=== PATIENT | male | born 1955 | race Caucasian/White ===

== ENCOUNTER 2021-02-03 11:00 | Outpatient (REF) | payer BC, SELFPAY ==
[2021-02-03 11:07] LABS: MANUAL DIFF FLAG NO
[2021-02-03 11:25] LABS: Basophils Percent Auto 0.7 % (0-2); Eosinophils Absolute Auto 0.2 X10*3/uL (0.0-0.4); Eosinophils Percent Auto 3.7 % (0-4); Hematocrit 42.3 % (42-52); Hemoglobin 14.1 g/dl (14.0-18.0); Imm Gran Abs Auto 0.01 X10*3/uL (0.00-0.03); Imm Gran Pct Auto 0.2 % (0.0-0.4); Lymphocytes Percent Auto 23.9 % (20-40); Mean Corpuscular HGB Conc 33.3 g/dl (31.0-36.0); Mean Corpuscular Hemoglobin 32.1 pg (27.0-33.0); Mean Corpuscular Volume 96.4 fL (80-98); Mean Platelet Volume 10.6 fL (9.4-12.4); Monocytes Absolute Auto 0.5 X10*3/uL (0.1-1.2); Monocytes Percent Auto 11.5 % (2-11); Neutrophils Absolute Auto 2.4 X10*3/uL (2.0-8.3); Platelet Count 156 X10*3/uL (160-400); Red Blood Count 4.39 X10*6/uL (4.60-5.80); Red Cell Distribution Width 13.1 % (11.0-16.0)
[2021-02-03 12:08] LABS: Appearance Urine CLEAR; Color Urine YELLOW; Glucose Urine UA NEG (NEG); Leukocyte Esterase Urine NEG (NEG); Nitrite Urine NEG (NEG); Specific Gravity - Urine 1.025 (1.005-1.025); Urine Blood NEG (NEG); Urine Ketones NEG (NEG); Urine Protein NEG (NEG-TRACE)
[2021-02-03 12:42] LABS: Alanine Aminotransferase 13 U/L (0-40); Alkaline Phosphatase 70 U/L (39-117); Anion Gap 11 (12-20); Aspartate Amino Transferase 17 U/L (5-37); Bilirubin Total 0.7 mg/dL (0.0-1.0); Blood Urea Nitrogen 10 mg/dL (9-16); Calcium 8.8 mg/dL (8.4-10.2); Carbon Dioxide 28 mmol/L (22-29); Chloride 107 mmol/L (96-108); Cholesterol 174 mg/dL; Estimated Glomerular Filt Rate > 60; Glucose Fasting 110 mg/dL (60-99); HDL Cholesterol 87 mg/dL; LDL Cholesterol Calculated 78 mg/dl; Potassium 3.9 mmol/L (3.3-5.1); Sodium 142 mmol/L (135-145); Total Protein 6.2 g/dL (6.5-8.0); Triglycerides 49 mg/dL
[2021-02-03 12:44] LABS: Creatinine Urine 112.42 mg/dL; Microalbumin Urine < 5.0 mg/L
[2021-02-03 12:59] LABS: Estimated Average Glucose 97 mg/dL
== END 2021-02-03 11:01 | disposition home or self-care (01) ==
LOC: HO.LNP 11:00
PROVIDERS: Visit Provider Internal Medicine
DX: Z00.00 Encounter for general adult medical examination without abnormal findings (principal); D70.9 Neutropenia, unspecified; R73.03 Prediabetes; I34.1 Nonrheumatic mitral (valve) prolapse
CPT/HCPCS: 80053; 80061; 81003; 82043; 83036; 85025

== ENCOUNTER → 2021-04-04 08:00 | Outpatient (REF) | payer BC, SELFPAY ==
--- NOTE | 2021-04-04 08:30 | CA_ITS ---
Transthoracic Echocardiogram Patient (Last, First, Middle): Raúl Peraza P Gender: Male Date of : 1955 Age: 65 Procedure Date: 04/04/2021 Procedure Type: Transthoracic Echocardiogram Location: OP Height: 187.96 cm Weight: 95.26 kg BSA: 2.22 m2 Heart Rate: bpm BP: 110 / 70 mmHg [employer]ies[employer] Plant Manager: LAURI Referring MD: Mitul Galicia MD Symptoms: I34.1 MITRAL VALVE PROLAPSE Conclusions: - Normal right ventricular cavity size and systolic function. - Normal left ventricular size and systolic function. - The left atrium is severely dilated. - There is moderate anterior and posterior mitral leaflet thickening. There is a flail posterior mitral leaflet. There is moderate to severe mitral valve regurgitation. The mitral regurgitation jet is directed anteriorly. There is no mitral valve stenosis. There is P2 segment prolapse noted. - There is mild dilatation of the ascending aorta measuring 3.60 cm. Findings Left Ventricle Normal left ventricular size and systolic function. There is normal left ventricular wall thickness. The visually estimated ejection fraction is between 55-60%. There is no evidence of regional wall motion abnormalities. Diastolic function is normal for age. Right Ventricle Normal right ventricular cavity size and systolic function. Atria The left atrium is severely dilated. The right atrium is normal in size. Aortic Valve Normal aortic valve structure and function. There is no aortic valve stenosis. There is no aortic valve regurgitation. Mitral Valve There is moderate anterior and posterior mitral leaflet thickening. There is a flail posterior mitral leaflet. There is moderate to severe mitral valve regurgitation. The mitral regurgitation jet is directed anteriorly. There is no mitral valve stenosis. There is P2 segment prolapse noted. Pulmonic Valve Normal pulmonic valve structure and function. There is trace pulmonic valve regurgitation. Tricuspid Valve Normal tricuspid valve structure. There is no tricuspid valve regurgitation. Normal right atrial pressure. There is no evidence of pulmonary hypertension. Great Vessels There is mild dilatation of the ascending aorta measuring 3.60 cm. The visualized portions of the pulmonary artery and branches are normal. Venous The inferior vena cava is normal in size and collapses greater than 50% with inspiration. Pericardium/Pleural There is no evidence of pericardial effusion. Prior Study Comparison Changes noted compared to prior study dated: 07/20/2015. Posterior mitral valve leaflet is flail with moderate to severe MR. Recommendations, Care & Conclusions Recommend a JOSE ELIAS. Measurements 2D Linear Measurements IVSd: 1.03 0.6-0.9/0.6-1.0 cm LVIDd: 5.08 3.9-5.3/4.2-5.9 cm LVIDd Index: 2.29 2.4-3.2/2.2-3.1 cm/m2 LVIDs: 2.74 2.0-3.6 cm LVPWd: 1.08 0.7-1.1 cm Ao Root: 4.00 2.1-3.5 cm LA Diam: 5.10 2.7-3.8/3.0-4.0 cm LAIDs Index: 2.30 1.5-2.3 cm/m2 LV Mass: 250.22 67-162/88-224 g LV Mass Index: 112.71 43-95/49-115 g/m2 LVOT Diam: 2.30 3.0+(-)1.3 cm 2D Systolic Function EF 4C: 52.90 >55% EF 2C: 51.70 >55% EF BiP: 53.90 >55% Mitral Valve MV Pk E: 0.82 MV PK A: 0.40 MV Decel Time: 363.00 E/A: 2.10 E'Lateral: 13.10 E'Medial: 10.20 E/E' Med: 8.00 E/E' Lat: 6.20 PHT: 106.00 MVA PHT: 2.08 Decel Brooke: 2.25 Aortic Valve AoV Pk Fritz: 1.35 AoV Mn Fritz: 0.88 AoV VTI: 0.29 AoV Pk Grad: 7.00 Aov Mn Grad: 4.00 DERECK Cont.VTI: 2.98 LVOT LVOT Pk Fritz: 1.02 LVOT Mn Fritz: 0.63 LVOT VTI: 0.21 LVOT Pk Grad: 4.00 LVOT Mn Grad: 2.00 LVOT Diam: 2.30 LVOT Area: 4.15 Diastolic Function MV Pk E: 0.82 MV Pk A: 0.40 E/A: 2.10 E'Medial: 10.20 E/E' Med: 8.00 E' Laterial: 13.10 E/E' Lat: 6.20 Right Ventricle TAPSE (mm): 2.63 Tricuspid Valve TR Pk Fritz: 2.38 TR Pk Grad: 23.00 RA Press: 3.00 RVSP: 26.00 Great Vessels Aorta Ao Root-2D: 4.00 2.0-3.7 cm Ao Asc: 3.60 2.1-3.4 cm Ao Arch: 2.90 Updated in Other Vendor System with Status of Final John Crook MD electronically signed on 04/07/2021 7:25:04 PM with status of Final
== END ==
LOC: HO.CARD 08:00
PROVIDERS: PCP Internal Medicine; Visit Provider Internal Medicine
DX: I34.1 Nonrheumatic mitral (valve) prolapse (principal)
CPT/HCPCS: 93306

== ENCOUNTER → 2021-05-20 15:11 | Outpatient (BNVA) | payer BC, SELFPAY | PROVIDERS: PCP Internal Medicine; Referring Provider Internal Medicine; Visit Provider Internal Medicine | DX: I34.1 Nonrheumatic mitral (valve) prolapse (principal); I34.0 Nonrheumatic mitral (valve) insufficiency; I45.10 Unspecified right bundle-branch block | CPT/HCPCS: 93005 ==

== ENCOUNTER 2021-05-30 12:22 | Day surgery (SDC) | payer BC, SELFPAY ==
[2021-05-26 10:46] VITALS: BMI 25.8
[2021-05-30 12:43] VITALS: BP 124/72; PULSE 65; RESP 16; TEMP 37.1; O2SAT 95
--- NOTE | 2021-05-30 13:24 | MHC.SHP ---
Pre-Procedural Eval Section A Date of Service: 05/30/21 The patient is an INPATIENT: No Section B Chief Complaint: Nonrheumatic Mitral Valve insufficiency Allergies: Allergies Allergy/AdvReac Type Severity Reaction Status Date / Time No Known Allergies Allergy Mild N/A Verified 05/20/21 15:22 Plan I have reviewed the history and physical and performed a pertinent physical examination on my patient. No changes have occurred unless specified.
--- NOTE | 2021-05-30 13:25 | P.CONAN_ITS ---
[facility] Active Problems Active Problems: All Active Problems (Updated 05/23/21 @ 14:35 by Susan turcios RN) MVP (mitral valve prolapse) (Acute) Non-rheumatic mitral regurgitation (Acute) RBBB (Acute) Past Medical History Medical History (Updated 05/23/21 @ 14:35 by Susan Zuleta RN) Mitral valve prolapse Right bundle branch block Family History Family History (Updated 05/20/21 @ 15:22 by JAM Butler) Father Diabetes History of heart bypass surgery Mother Heart failure Family history of problems with anesthesia: No Surgical History Surgical History (Updated 05/23/21 @ 14:34 by Susan Zuleta RN) H/O colonoscopy Hx of varicose vein ligation and stripping History of Problems with Anesthesia: No Social History Social History (Updated 05/20/21 @ 15:21 by JAM Butler) Patient Tobacco Use Status: Never used Tobacco Advance Directives: No (unknown) Advance Directives Information Provided: Yes Advance Directives on File: No Meds Allergies Allergy/AdvReac Type Severity Reaction Status Date / Time No Known Allergies Allergy Mild N/A Verified 05/20/21 15:22 Home Medications Medication Instructions Recorded Confirmed Last Taken Type No Known Home Meds 05/20/21 05/23/21 Unknown History Exam Exam Date and Time: May 30, 2021 1325 Height,Weight and Vital Signs: Height 6 ft 2 in Weight 91.172 kg Last Vital Signs Temp 98.8 F 05/30/21 12:43 Pulse 65 05/30/21 12:43 Resp 16 05/30/21 12:43 BP 124/72 05/30/21 12:43 Pulse Ox 95 05/30/21 12:43 Airway Mallampati Class: II (Missing 2 teeth) TM Dist: >3cm Neck ROM: Full Heart: rrr Lungs: cta bl Assessment and Plan Assessment Anesthesia Assessment: Anesthesia Plan Discussed and Chart Reviewed Final Anesthetic Review Family History of Problems with Anesthesia: No History of Problems with Anesthesia: No NPO: Yes ASA Class: II Final Preanesthetic Review: No Changes in Pt Med Stat, Meds/Allgs Chart Reviewed and Consent Obtained/Reviewed Patient Risk: Intermediate Procedure Risk: Intermediate Anesthetic Plan Anesthetic Plan: MAC: Disposition: Standard PACU
--- NOTE | 2021-05-30 14:10 | CA_ITS ---
Transesophageal Echocardiogram Patient (Last, First, Middle): Raúl Peraza P Gender: Male Date of : 1955 Age: 65 Procedure Date: 05/30/2021 Procedure Type: Transesophageal Echocardiogram Location: OP Height: 182.88 cm Weight: kg Program Manager Slp: ELIZABETH Referring MD: Jaycob Malone MD Symptoms: I34.0 - Nonrheumatic mitral (valve) insufficiency Conclusion: ??? The left ventricular systolic function is normal. The visually estimated ejection fraction is between 55-60%. ??? The mitral valve appears myxomatous. There is moderate to severe mitral valve regurgitation. The mitral regurgitation jet is directed anteriorly. Jet is very eccentric. Flail P2 scallop. Findings Procedure Information Consent was obtained prior to the procedure. The adult 3D probe was passed with no difficulty. Left Ventricle Normal left ventricular cavity size. The left ventricular systolic function is normal. The visually estimated ejection fraction is between 55-60%. Right Ventricle Normal right ventricular cavity size and systolic function. Atria There is no evidence of a thrombus in the left atrial appendage. There is no evidence of interatrial shunt by color Doppler. Aortic Valve There is a normal trileaflet aortic valve. There is no aortic valve stenosis. There is trace (trivial) aortic valve regurgitation. Mitral Valve The mitral valve appears myxomatous. There is moderate to severe mitral valve regurgitation. The mitral regurgitation jet is directed anteriorly. There is no mitral valve stenosis. Jet is very eccentric. Flail P2 scallop. Effective regurgitant orifice area 0.6sqcm, likely over-estimate. Regurgitant volume 74ml, also likely over-estimate. No clear abnormality in pulmonic veins. Pulmonic Valve The pulmonic valve was not well visualized. Tricuspid Valve Normal tricuspid valve structure. There is trace tricuspid valve regurgitation. Great Vessels The aortic annulus, sinuses of valsalva, and asc aorta are normal in size. No significant atherosclerotic plaque. Pericardium/Pleural There is no evidence of pericardial effusion. Prior Study Comparison No significant change compared to prior study dated: 04/04/2021. Measurements Mitral Valve MR Vol - PW Dopp: 75.60 MR VTI: 1.26 MR ERO: 60.00 MR Alias Fritz: 0.28 MR RAD: 1.20 Updated by Jaycob Malone on 03:30 PM with Status of Final Jaycob Malone MD electronically signed on 05/30/2021 3:31:26 PM with status of Final
[2021-05-30 15:00] VITALS: BP 107/61; PULSE 71; RESP 14; TEMP 36.8; O2SAT 97
[2021-05-30 15:15] VITALS: BP 108/62; PULSE 71; RESP 16; TEMP 36.8; O2SAT 96
[2021-05-30 15:31] VITALS: BP 109/78; PULSE 60; RESP 16; TEMP 36.8; O2SAT 96
== END 2021-06-02 16:05 | disposition home or self-care (01) ==
PROVIDERS: PCP Internal Medicine; Visit Provider Internal Medicine
PROC: (CPT 93312; principal; 2021-05-30 14:10)
DX: I34.0 Nonrheumatic mitral (valve) insufficiency (principal); I34.1 Nonrheumatic mitral (valve) prolapse; I45.10 Unspecified right bundle-branch block
CPT/HCPCS: 93312

== ENCOUNTER 2021-07-02 12:09 | Outpatient (REF) | payer BC, SELFPAY ==
[2021-07-02 12:58] LABS: Hematocrit 41.9 % (42.0-52.0); Mean Corpuscular HGB Conc 33.4 g/dl (31.0-36.0); Mean Corpuscular Hemoglobin 31.5 pg (27.0-33.0); Mean Corpuscular Volume 94.4 fL (80.0-98.0); Mean Platelet Volume 9.7 fL (9.4-12.4); Platelet Count 147 X10*3/uL (160-400); Red Blood Count 4.44 X10*6/uL (4.60-5.80); Red Cell Distribution Width 12.7 % (11.0-16.0)
[2021-07-02 13:12] LABS: Prothrombin Time 11.4 SEC (9.9-13.0)
[2021-07-02 13:17] LABS: Anion Gap 12 (12-20); Blood Urea Nitrogen 17 mg/dL (9-16); Calcium 9.5 mg/dL (8.4-10.2); Carbon Dioxide 28 mmol/L (22-29); Chloride 104 mmol/L (96-108); Estimated Glomerular Filt Rate > 60; Glucose Random 113 mg/dL (60-115); Potassium 4.4 mmol/L (3.3-5.1); Sodium 140 mmol/L (135-145)
== END 2021-07-02 12:10 | disposition home or self-care (01) ==
LOC: HO.LAB 12:09
PROVIDERS: PCP Internal Medicine; Visit Provider Internal Medicine
DX: I34.0 Nonrheumatic mitral (valve) insufficiency (principal)
CPT/HCPCS: 36415; 80048; 85027; 85610

== ENCOUNTER → 2021-07-31 12:57 | Outpatient (BNVA) | payer BC, SELFPAY | PROVIDERS: PCP Internal Medicine; Referring Provider Internal Medicine; Visit Provider Nurse Practitioner Family | DX: Z13.89 Encounter for screening for other disorder (principal) ==

== ENCOUNTER 2021-09-10 10:44 | Outpatient (REF) | payer BC, SELFPAY ==
--- NOTE | ~2021-09-10 | US_ITS ---
EXAMINATION: US EXTRACRANIAL CAROTID DUPLEX, BILATERAL CLINICAL INFORMATION: Carotid bruit COMPARISON: None TECHNIQUE: Real-time ultrasound and Doppler techniques (integrating B-mode 2-D vascular images, Doppler spectral analysis and color-flow Doppler imaging) were utilized to interrogate the extracranial carotid arteries, the vertebral arteries and proximal subclavian arteries bilaterally. The degree of stenosis is determined by criteria similar to NASCET. FINDINGS: Right Side: 1. There is no atherosclerotic plaque seen in the bifurcation/proximal ICA region. 2. The common carotid artery PSV proximally is 101 cm/s and distally 105 cm/s. 3. The proximal internal carotid artery velocities are 80 cm/s systolic and 17 cm/s diastolic. 4. The proximal external carotid artery PSV is 95 cm/s. 5. The vertebral artery shows antegrade flow. 6. The subclavian artery waveforms are normal. Left Side: 1. There is no atherosclerotic plaque seen in the bifurcation/proximal ICA region. 2. The common carotid artery PSV proximally is 165 cm/s and distally 82 cm/s. 3. The proximal internal carotid artery velocities are 75 cm/s systolic and 20 cm/s diastolic. 4. The proximal external carotid artery PSV is 92 cm/s. 5. The vertebral artery shows antegrade flow. 6. The subclavian artery waveforms are normal. US/US carotid duplex BI IMPRESSION: 1. RIGHT: Normal right internal carotid artery without atherosclerotic plaque or hemodynamically significant stenosis. 2. LEFT: Normal left internal carotid artery without atherosclerotic plaque or hemodynamically significant stenosis.
== END 2021-09-10 10:45 | disposition home or self-care (01) ==
LOC: HO.US 10:44
PROVIDERS: Visit Provider Thoracic Surgery (Cardiothoracic Vascular Surgery)
DX: R01.1 Cardiac murmur, unspecified (principal)
CPT/HCPCS: 93880

== ENCOUNTER 2021-11-11 16:40 | Outpatient (REF) | payer BC, SELFPAY ==
[2021-10-29 13:18] VITALS: BP 110/72; BP 116/70; BMI 27.7
[2021-11-11 16:47] LABS: MANUAL DIFF FLAG NO
[2021-11-11 16:58] LABS: Basophils Percent Auto 0.5 % (0-2); Eosinophils Absolute Auto 0.2 X10*3/uL (0.0-0.4); Eosinophils Percent Auto 5.8 % (0-4); Hemoglobin 13.2 g/dl (14.0-18.0); Imm Gran Abs Auto 0.01 X10*3/uL (0.00-0.03); Imm Gran Pct Auto 0.3 % (0.0-0.4); Lymphocytes Absolute Auto 0.9 X10*3/uL (1.2-4.9); Lymphocytes Percent Auto 23.7 % (20-40); Mean Corpuscular Hemoglobin 30.2 pg (27.0-33.0); Mean Corpuscular Volume 91.5 fL (80.0-98.0); Mean Platelet Volume 10.2 fL (9.4-12.4); Monocytes Absolute Auto 0.4 X10*3/uL (0.1-1.2); Monocytes Percent Auto 10.1 % (2-11); Neutrophils Absolute Auto 2.4 x10*3/uL (2.0-8.3); Neutrophils Percent Auto 59.6 % (45-73); Platelet Count 194 X10*3/uL (160-400); Red Blood Count 4.37 X10*6/uL (4.60-5.80); Red Cell Distribution Width 13.2 % (11.0-16.0)
== END 2021-11-11 16:41 | disposition home or self-care (01) ==
LOC: HO.LNP 16:40
PROVIDERS: Visit Provider Internal Medicine
DX: D64.9 Anemia, unspecified (principal)
CPT/HCPCS: 85025

== ENCOUNTER → 2021-12-31 10:31 | Outpatient (REF) | payer BC, SELFPAY ==
[2021-10-29 13:18] VITALS: BP 110/72; BP 116/70
[2021-11-25 07:52] VITALS: BP 102/68; BMI 27.7
--- NOTE | 2021-12-31 10:36 | CA_ITS ---
Transthoracic Echocardiogram Patient (Last, First, Middle): Raúl Peraza P Gender: Male Date of : 1955 Age: 66 Procedure Date: 12/31/2021 Procedure Type: Transthoracic Echocardiogram Location: OP Height: 187.96 cm Weight: 96.16 kg BSA: 2.23 m2 Heart Rate: 67 bpm BP: 106 / 62 mmHg Rural Mail Contractor: TO Referring MD: Jaycob Malone MD Assistant Signal Maintainer: Derrick Holbrook MD Symptoms: Z98.890 - Other specified postprocedural states Study Quality: Adequate ECG Rhythm: Sinus Conclusions: - 1. Low normal LV systolic function with mild LVH with impaired relaxation filling pattern 2. Mildly reduced RV systolic function 3. Posterior mitral valve leaflet repair with no mitral regurgitation next 4. Normal RV systolic pressure 5. No pericardial effusion Findings Left Ventricle Normal left ventricular cavity size. There is mildly increased left ventricular wall thickness. The left ventricular systolic function is low normal. The visually estimated ejection fraction is between 50-55%. There is paradoxical septal motion consistent with post-operative status. Spectral Doppler is indicative of an impaired relaxation filling pattern. E/E prime ratio is between 8 and 15 consistent with indeterminate filling pressures. Right Ventricle Normal right ventricular cavity size. There is mildly decreased right ventricular systolic function. Atria The left atrium is likely dilated. There is no evidence of interatrial shunt. The right atrium is likely dilated. Aortic Valve Normal aortic valve structure and function. There is no aortic valve stenosis. There is no aortic valve regurgitation. Mitral Valve There is mild anterior and moderate posterior mitral leaflet thickening. The posterior mitral leaflet has restricted mobility. There is no mitral valve regurgitation. There is no mitral valve stenosis. Thickened and restricted posterior mitral leaflet most consistent with posterior mitral valve leaflet repair Pulmonic Valve The pulmonic valve is likely normal. There is trace pulmonic valve regurgitation. Tricuspid Valve Normal tricuspid valve structure. There is mild tricuspid valve regurgitation. The right ventricular systolic pressure is normal. The right ventricular systolic pressure is 17 mmHg. Normal right atrial pressure. There is no evidence of pulmonary hypertension. Great Vessels All visible segments of the aorta are normal in size. The pulmonary artery was not well visualized. Venous The inferior vena cava is normal in size and collapses greater than 50% with inspiration. Pericardium/Pleural There is no evidence of pericardial effusion. Prior Study Comparison Changes noted compared to prior study dated: 05/30/2021. LV systolic function appears marginally depressed. Posterior mitral leaflet appears to be thickened, most likely post mitral valve repair with no evidence of mitral regurgitation Measurements 2D Linear Measurements IVSd: 1.31 0.6-0.9/0.6-1.0 cm LVIDd: 4.38 3.9-5.3/4.2-5.9 cm LVIDd Index: 1.96 2.4-3.2/2.2-3.1 cm/m2 LVIDs: 2.85 2.0-3.6 cm LVPWd: 1.25 0.7-1.1 cm LA Diam: 4.50 2.7-3.8/3.0-4.0 cm LAIDs Index: 2.02 1.5-2.3 cm/m2 LV Mass: 307.29 67-162/88-224 g LV Mass Index: 137.80 43-95/49-115 g/m2 LVOT Diam: 2.20 3.0+(-)1.3 cm 2D Systolic Function EF 4C: 50.60 >55% EF 2C: 41.70 >55% Mitral Valve MV VTI: 0.32 MV Pk Fritz: 1.01 MV Mn Fritz: 0.68 MV Pk Grad: 4.00 MV Mn Grad: 2.00 MV Pk E: 0.65 MV PK A: 0.78 MV Decel Time: 314.00 E/A: 0.80 E'Lateral: 9.68 E'Medial: 7.72 E/E' Med: 8.40 E/E' Lat: 6.70 PHT: 92.00 MVA PHT: 2.39 MVA Continuity: 2.23 Decel Chester: 2.06 Aortic Valve AoV Pk Fritz: 1.16 AoV Mn Fritz: 0.87 AoV VTI: 0.25 AoV Pk Grad: 5.00 Aov Mn Grad: 3.00 DERECK Cont.VTI: 2.82 LVOT LVOT Pk Fritz: 0.80 LVOT Mn Fritz: 0.57 LVOT VTI: 0.19 LVOT Pk Grad: 3.00 LVOT Mn Grad: 1.00 LVOT Diam: 2.20 LVOT Area: 3.80 Diastolic Function MV Pk E: 0.65 MV Pk A: 0.78 E/A: 0.80 E'Medial: 7.72 E/E' Med: 8.40 E' Laterial: 9.68 E/E' Lat: 6.70 Right Ventricle TAPSE (mm): 14.80 TVS' Fritz: 5.66 Tricuspid Valve TR Pk Fritz: 1.87 TR Pk Grad: 14.00 RA Press: 3.00 RVSP: 17.00 Great Vessels Aorta Sinus of Valsalva: 4.35 2.0-3.[address] [place]: 3.57 1.7-3.4 cm Ao Asc: 3.70 2.1-3.4 cm Updated in Other Vendor System with Status of Final Derrick Holbrook MD electronically signed on 12/31/2021 4:10:33 PM with status of Final
--- NOTE | 2021-12-31 10:36 | HM_ITS ---
* Total monitoring time 3 days and 8 hours. * Underlying rhythm is sinus. Average rate 78/Min. Range 60 to 115/Min. * No atrial fibrillation or flutter or AV blocks or pauses. * Rare supraventricular ectopy with minimal burden. Few brief runs, longest 14 beats. * Rare ventricular ectopy with minimal burden. * No patient events. MTDD
== END ==
LOC: HO.CARD 10:31
PROVIDERS: Visit Provider Internal Medicine
DX: Z98.890 Other specified postprocedural states (principal)
CPT/HCPCS: 93242; 93306

== ENCOUNTER 2022-02-10 11:21 | Outpatient (REF) | payer BC, SELFPAY ==
[2022-02-10 11:21] VITALS: BP 116/70; BP 134/80; BMI 27.5
[2022-02-10 11:27] LABS: MANUAL DIFF FLAG NO
[2022-02-10 12:10] LABS: Basophils Percent Auto 0.7 % (0-2); Eosinophils Absolute Auto 0.2 X10*3/uL (0.0-0.4); Eosinophils Percent Auto 4.5 % (0-4); Hematocrit 43.1 % (42.0-52.0); Hemoglobin 14.5 g/dl (14.0-18.0); Imm Gran Abs Auto 0.01 X10*3/uL (0.00-0.03); Imm Gran Pct Auto 0.2 % (0.0-0.4); Lymphocytes Absolute Auto 1.4 X10*3/uL (1.2-4.9); Lymphocytes Percent Auto 33.5 % (20-40); Mean Corpuscular HGB Conc 33.6 g/dl (31.0-36.0); Mean Corpuscular Hemoglobin 31.4 pg (27.0-33.0); Mean Corpuscular Volume 93.3 fL (80.0-98.0); Mean Platelet Volume 10.4 fL (9.4-12.4); Monocytes Absolute Auto 0.5 X10*3/uL (0.1-1.2); Monocytes Percent Auto 12.2 % (2-11); Neutrophils Percent Auto 48.9 % (45-73); Platelet Count 169 X10*3/uL (160-400); Red Blood Count 4.62 X10*6/uL (4.60-5.80)
[2022-02-10 12:15] LABS: Appearance Urine Clear; Color Urine Yellow; Glucose Urine UA Negative (Negative); Leukocyte Esterase Urine Negative (Negative); Nitrite Urine Negative (Negative); PH 5.5 (5.0-9.0); Urine Blood Negative (Negative); Urine Ketones Negative (Negative); Urine Protein Negative (Neg-Trace)
[2022-02-10 12:22] LABS: Estimated Average Glucose 105 mg/dL; Hemoglobin A1c % 5.3 %
[2022-02-10 12:33] LABS: Alanine Aminotransferase 12 U/L (0-40); Albumin Level 3.9 g/dL (3.5-5.0); Alkaline Phosphatase 80 U/L (39-117); Anion Gap 13 (12-20); Aspartate Amino Transferase 17 U/L (5-37); Bilirubin Total 0.4 mg/dL (0.0-1.0); Blood Urea Nitrogen 14 mg/dL (9-16); Calcium 8.8 mg/dL (8.4-10.2); Carbon Dioxide 26 mmol/L (22-29); Chloride 107 mmol/L (96-108); Cholesterol 167 mg/dL; Estimated Glomerular Filt Rate > 60; Glucose Fasting 104 mg/dL (60-99); HDL Cholesterol 72 mg/dL; LDL Cholesterol Calculated 84 mg/dl; Potassium 4.1 mmol/L (3.3-5.1); Sodium 142 mmol/L (135-145); Total Protein 6.3 g/dL (6.5-8.0); Triglycerides 59 mg/dL
[2022-02-10 12:41] LABS: Creatinine Urine 132.12 mg/dL; Microalbum/Creatinine Ratio Ur 3.7 ug/mg cr
[2022-02-10 12:44] LABS: PSA,Total (Free>4and<10) 0.49 ng/mL (0.00-4.00)
== END 2022-02-10 11:22 | disposition home or self-care (01) ==
LOC: HO.LNP 11:21
PROVIDERS: Visit Provider Internal Medicine
DX: Z00.00 Encounter for general adult medical examination without abnormal findings (principal); Z12.5 Encounter for screening for malignant neoplasm of prostate; D70.9 Neutropenia, unspecified; R73.03 Prediabetes
CPT/HCPCS: 80053; 80061; 81003; 82043; 83036; 84153; 85025

== ENCOUNTER → 2022-12-15 08:49 | Outpatient (REF) | payer BC, MEDICARE, SELFPAY ==
--- NOTE | 2022-12-15 08:53 | CA_ITS ---
Transthoracic Echocardiogram Patient (Last, First, Middle): Raúl Peraza P Gender: Male Date of : 1955 Age: 67 Procedure Date: 12/15/2022 Procedure Type: Transthoracic Echocardiogram Location: OP Height: 187.96 cm Weight: 98.88 kg BSA: 2.25 m2 Heart Rate: bpm BP: 110 / 70 mmHg Dulser: TO Referring MD: Jaycob Malone MD Symptoms: Z98.890 - Other specified postprocedural states Study Quality: Adequate ECG Rhythm: Sinus Conclusions: - The left ventricular systolic function is mildly decreased. The calculated ejection fraction is 50% by biplane method. - Normally functioning mitral valve s/p repair. Findings Left Ventricle Normal left ventricular cavity size. The left ventricular systolic function is mildly decreased. The calculated ejection fraction is 50% by biplane method. There is mild global hypokinesis. Diastolic function is normal for age. There is mild septal and mild basal asymmetric hypertrophy. Right Ventricle Moderately increased right ventricular cavity size. There is mildly decreased right ventricular systolic function. Atria The left atrium is likely dilated. The right atrium is mildly dilated. Aortic Valve There is a normal trileaflet aortic valve. There is no aortic valve stenosis. There is no aortic valve regurgitation. Mitral Valve There is trace mitral valve regurgitation. There is no mitral valve stenosis. Posterior leaflet appearance suggestive of mitral valve repair. Pulmonic Valve There is trace pulmonic valve regurgitation. Tricuspid Valve Normal tricuspid valve structure. There is mild tricuspid valve regurgitation. There is no evidence of pulmonary hypertension. Great Vessels The asc aorta is normal in size. Venous The inferior vena cava is normal in size and collapses greater than 50% with inspiration. Pericardium/Pleural There is no evidence of pericardial effusion. Prior Study Comparison No significant change compared to prior study dated: 12/31/2021. Measurements 2D Linear Measurements IVSd: 1.40 0.6-0.9/0.6-1.0 cm LVIDd: 4.70 3.9-5.3/4.2-5.9 cm LVIDd Index: 2.09 2.4-3.2/2.2-3.1 cm/m2 LVIDs: 3.70 2.0-3.6 cm LVPWd: 0.90 0.7-1.1 cm LA Diam: 4.50 2.7-3.8/3.0-4.0 cm LAIDs Index: 2.00 1.5-2.3 cm/m2 LV Mass: 248.74 67-162/88-224 g LV Mass Index: 110.55 43-95/49-115 g/m2 LVOT Diam: 2.30 3.0+(-)1.3 cm 2D Systolic Function EF 4C: 53.50 >55% EF 2C: 48.90 >55% EF BiP: 50.40 >55% Mitral Valve MV VTI: 0.38 MV Pk Fritz: 0.98 MV Mn Fritz: 0.63 MV Pk Grad: 4.00 MV Mn Grad: 2.00 MV Pk E: 0.65 MV PK A: 0.93 MV Decel Time: 389.00 E/A: 0.70 E'Lateral: 8.81 E'Medial: 7.51 E/E' Med: 8.70 E/E' Lat: 7.40 PHT: 114.00 MVA PHT: 1.93 MVA Continuity: 2.04 Decel Lau[place]: 1.68 Aortic Valve AoV Pk Fritz: 1.19 AoV Mn Fritz: 0.92 AoV VTI: 0.27 AoV Pk Grad: 6.00 Aov Mn Grad: 4.00 DERECK Cont.VTI: 2.87 LVOT LVOT Pk Fritz: 0.82 LVOT Mn Fritz: 0.54 LVOT VTI: 0.19 LVOT Pk Grad: 3.00 LVOT Mn Grad: 1.00 LVOT Diam: 2.30 LVOT Area: 4.15 Diastolic Function MV Pk E: 0.65 MV Pk A: 0.93 E/A: 0.70 E'Medial: 7.51 E/E' Med: 8.70 E' Laterial: 8.81 E/E' Lat: 7.40 Right Ventricle TAPSE (mm): 14.50 TVS' Fritz: 7.62 Tricuspid Valve TR Pk Fritz: 2.10 TR Pk Grad: 18.00 RA Press: 3.00 RVSP: 21.00 Great Vessels Aorta Sinus of Valsalva: 4.00 2.0-3.5 cm Ao Asc: 3.60 2.1-3.4 cm Updated in Other Vendor System with Status of Final Jaycob Malone MD electronically signed on 12/17/2022 4:48:39 PM with status of Final
== END ==
LOC: HO.CARD 08:49
PROVIDERS: PCP Internal Medicine; Visit Provider Internal Medicine
DX: Z98.890 Other specified postprocedural states (principal)
CPT/HCPCS: 93306

== ENCOUNTER → 2022-12-15 08:53 | Outpatient (BNV) | payer BC, MEDICARE, SELFPAY | PROVIDERS: PCP Internal Medicine; Visit Provider Internal Medicine | DX: I51.7 Cardiomegaly (principal); I36.1 Nonrheumatic tricuspid (valve) insufficiency | CPT/HCPCS: 93306 ==

== ENCOUNTER 2023-01-14 08:07 | Outpatient (AMB) | payer BC, MEDICARE, SELFPAY ==
[2021-10-29 13:18] VITALS: BP 110/72; BP 116/70
[2021-12-23 06:42] VITALS: BP 104/58; BMI 27.7
--- NOTE | 2023-01-14 08:11 | A.OFFVIS_ITS ---
Intake Vital Signs 01/14/23 08:12 Height 6 ft 2 in Weight 222 lb 10.67 oz BMI 28.6 BP 110/70 Blood Pressure Location Lt brachial Position Sitting Pulse 60 Intake Visit Reasons: 1 yr f/up s/p echo Intake Note: 1 year follow up w/ EKG Ambulance Driver Paramedic Required: No Accompanied by: Self / Same As Patient Allergies No Known Allergies Allergy (Mild, Verified 01/14/23 08:15) N/A Medication List - Last Reconciled 01/14/23 by Jaycob Malone MD aspirin (Adult Low Dose Aspirin) 81 mg PO DAILY metoprolol tartrate 25 mg PO BID HPI HPI Comments History of Present Illness Details Raúl returns for follow-up after recent mitral valve repair. To recall, he was seen regarding severe mitral regurgitation. He had some shor tness of breath with activity and subsequently, underwent cardiac catheterization that showed no significant coronary disease. Then seen cardiac surgeon and underwent mitral valve repair. Since last seen, no new issues. He states that he feels fine. [facility] Medical History (Updated 05/23/21 @ 14:35 by Susan Zuleta RN) Mitral valve prolapse Right bundle branch block Surgical History H/O colonoscopy History of mitral valve repair (~09/2021) Hx of varicose vein ligation and stripping S/P cardiac cath Family History Father Diabetes History of heart bypass surgery Mother Heart failure Social History Patient Tobacco Use Status: Never used Tobacco Review of Systems Const Denies weakness ENT Denies dizziness Card Denies chest pain, Denies chest pain with activity, Denies syncope, Denies rapid heart rate, Denies pedal edema, Denies edema, Denies leg edema, Denies lightheadedness, Denies palpitations, Denies dyspnea, Denies dyspnea on exertion and Denies orthopnea Resp Denies cough, Denies dyspnea and Denies dyspnea on exertion GI Denies hematochezia and Denies change in stool character Musc Denies abnormal gait, Denies muscle cramps, Denies muscle weakness, Denies numbness, Denies radiating pain into limb and Denies tingling Neuro Denies abnormal gait, Denies dizziness, Denies syncope, Denies numbness, Denies tingling and Denies weakness Endo Denies palpitations Physical Exam Vital Signs: Last Vital Signs Pulse 60 01/14/23 08:12 BP 110/70 01/14/23 08:12 BMI result Body Mass Index 28.6 Const General: comfortable and no acute distress Orientation/consciousness: patient oriented x3 HEENT Other: Unremarkable Head: Yes normal to inspection Neck Neck: Yes normal visual inspection Chest Chest palpation & inspection: normal inspection of the chest Resp Auscultation: clear to auscultation bilaterally Cardio Palpation: normal PMI Heart sounds: S1 normal heart sound present, S2 normal heart sound present, no gallops, no murmurs and no rubs GI Palpation (GI): Soft to palpation Back/Spine/Pelvis Other: unremarkable Skin General skin exam: no rashes or lesions noted Neuro General: patient oriented x3 Extrem General: Yes normal to inspection Psych Mental Status: mental status grossly normal Office Procedures EKG Details: EKG with sinus rhythm at 60/Min; right bundle-branch block pattern. [id number], Complete Assessment & Plan Assessment & Plan (1) Status post mitral valve repair: Code(s): Z98.890 - Other specified postprocedural states Plan: Preop cardiac catheterization showed normal coronary arteries. s/p mitral valve repair with annuloplasty ring and jessica chords. Postoperative echocardiogram had shown mild to moderately diminished LVEF and inferior wall hypo/akinesis. Mean gradient across the mitral valve then was 2 mm Hg. Repeat study with LVEF 50-55%. Status post mitral valve repair with no regurgitation or stenosis. Most recent echocardiogram with LVEF of 50%. Normally functioning mitral valve. Otherwise, may remain on aspirin. May stop beta-blockers. Infective endocarditis prophylaxis per protocol. (2) RBBB: Code(s): I45.10 - Unspecified right bundle-branch block Plan: Stable. EKG in 1 year. Plan Follow-up in 1 year. He will call us with any concerns. Medications: Discontinued metoprolol tartrate Discontinued Reason: None 25 mg PO BID 180 tabs 3RF Coding Level of Care Code Est Pt Level 4 (00934) Diagnoses Status post mitral valve repair Z98.890 RBBB I45.10 CPT Codes EKG - CPT: 75988-[id number], Complete ([id number])
[2023-01-14 08:12] VITALS: BP 110/70; PULSE 60; BMI 28.6
== END 2023-01-14 08:37 | disposition home or self-care (01) ==
PROVIDERS: PCP Internal Medicine; Referring Provider Internal Medicine; Visit Provider Internal Medicine
DX: Z98.890 Other specified postprocedural states (principal); I45.10 Unspecified right bundle-branch block
CPT/HCPCS: 93010; 99214

== ENCOUNTER → 2023-01-14 08:07 | Outpatient (BNVA) | payer BC, SELFPAY | PROVIDERS: PCP Internal Medicine; Referring Provider Internal Medicine; Visit Provider Internal Medicine | DX: I45.10 Unspecified right bundle-branch block (principal); Z98.890 Other specified postprocedural states; Z95.4 Presence of other heart-valve replacement | CPT/HCPCS: 93005 ==

== ENCOUNTER 2023-04-26 11:23 | Outpatient (REF) | payer MEDICARE, SELFPAY ==
[2023-04-26 11:27] LABS: MANUAL DIFF FLAG NO
[2023-04-26 11:48] LABS: Eosinophils Absolute Auto 0.2 X10*3/uL (0.0-0.4); Eosinophils Percent Auto 5.5 % (0-4); Hematocrit 43.6 % (42.0-52.0); Imm Gran Abs Auto 0.01 X10*3/uL (0.00-0.03); Imm Gran Pct Auto 0.3 % (0.0-0.4); Lymphocytes Absolute Auto 1.2 X10*3/uL (1.2-4.9); Lymphocytes Percent Auto 29.6 % (20-40); Mean Corpuscular HGB Conc 34.4 g/dl (31.0-36.0); Mean Corpuscular Hemoglobin 32.5 pg (27.0-33.0); Mean Corpuscular Volume 94.4 fL (80.0-98.0); Mean Platelet Volume 10.6 fL (9.4-12.4); Monocytes Absolute Auto 0.4 X10*3/uL (0.1-1.2); Monocytes Percent Auto 10.3 % (2-11); Neutrophils Absolute Auto 2.1 x10*3/uL (2.0-8.3); Neutrophils Percent Auto 53.3 % (45-73); Platelet Count 171 X10*3/uL (160-400); Red Blood Count 4.62 X10*6/uL (4.60-5.80); Red Cell Distribution Width 12.7 % (11.0-16.0)
[2023-04-26 11:51] LABS: Appearance Urine Clear; Color Urine Yellow; Glucose Urine UA Negative (Negative); Leukocyte Esterase Urine Negative (Negative); Nitrite Urine Negative (Negative); PH 5.5 (5.0-9.0); Urine Blood Negative (Negative); Urine Ketones Negative (Negative); Urine Protein Negative (Neg-Trace)
[2023-04-26 11:56] LABS: Bacteria Urine None Seen (None Seen); RBC Urine 0-2 /HPF (0-2); Squamous Epithelial Cell Urine 0-2 /HPF (0-2); WBC Urine 0-5 /HPF (0-5)
[2023-04-26 12:00] LABS: Estimated Average Glucose 108 mg/dL; Hemoglobin A1c % 5.4 % (<6.0)
[2023-04-26 12:20] LABS: Alanine Aminotransferase 16 U/L (0-40); Albumin Level 3.9 g/dL (3.5-5.0); Alkaline Phosphatase 68 U/L (39-117); Anion Gap 14 (12-20); Aspartate Amino Transferase 21 U/L (5-37); Bilirubin Total 0.7 mg/dL (0.0-1.0); Blood Urea Nitrogen 15 mg/dL (9-16); Carbon Dioxide 23 mmol/L (22-29); Chloride 110 mmol/L (96-108); Cholesterol 173 mg/dL (<200); Estimated Glomerular Filt Rate > 60; Glucose Fasting 127 mg/dL (60-99); HDL Cholesterol 78 mg/dL (>40); LDL Cholesterol Calculated 86 mg/dL (<100); Potassium 4.1 mmol/L (3.3-5.1); Sodium 143 mmol/L (135-145); Total Protein 6.6 g/dL (6.5-8.0); Triglycerides 47 mg/dL (<150)
[2023-04-26 12:24] LABS: PSA,Total (Free>4and<10) 0.56 ng/mL (0.00-4.00)
[2023-04-26 12:33] LABS: Creatinine Urine 129.38 mg/dL; Microalbum/Creatinine Ratio Ur 3.8 ug/mg cr (<30)
== END 2023-04-26 11:24 | disposition home or self-care (01) ==
LOC: HO.LNP 11:23
PROVIDERS: Visit Provider Internal Medicine
DX: Z00.00 Encounter for general adult medical examination without abnormal findings (principal); Z12.5 Encounter for screening for malignant neoplasm of prostate; R73.03 Prediabetes; D70.9 Neutropenia, unspecified
CPT/HCPCS: 80053; 80061; 81001; 82043; 82570; 83036; 84153; 85025

== ENCOUNTER 2023-12-27 09:47 | Day surgery (SDC) | payer MEDICARE, SELFPAY ==
[2023-12-23 13:05] VITALS: BMI 29.6
--- NOTE | 2023-12-24 09:07 | P.CONAN_ITS ---
Documented by User: Saskia Mario NP 12/24/23 09:12 HPI - Anesthesia Eval Consult details Narrative: 68yo M for Colonoscopy s/p Mitral repair 2021 [place] [facility]. Last visit 12/2022, stable for 1 year f/u [facility] Active Problems Active Problems: All Active Problems Status post mitral valve repair (Acute) RBBB (Acute) Non-rheumatic mitral regurgitation (Acute) MVP (mitral valve prolapse) (Acute) S/P cardiac cath (Acute) Past Medical History Medical History History of transesophageal echocardiography (JOSE ELIAS) Right bundle branch block Mitral valve prolapse Family History Family History Father Diabetes History of heart bypass surgery Mother Heart failure Family history of problems with anesthesia: No Surgical History Surgical History History of mitral valve repair (~09/2021) S/P cardiac cath Hx of varicose vein ligation and stripping H/O colonoscopy History of Problems with Anesthesia: No Social History Social History Patient Tobacco Use Status: Never used Tobacco Are you DNR?: No Advance Directives: No Advance Directives Information Provided: Yes Nutrition Risks: No Nutritional Risk Meds Allergies Allergy/AdvReac Type Severity Reaction Status Date / Time No Known Allergies Allergy Mild N/A Verified 01/14/23 08:15 Exam Height,Weight and Vital Signs: Height 6 ft 3 in Weight 107.501 kg Narrative Narrative: ECHO 2022 Conclusions: - The left ventricular systolic function is mildly decreased. The calculated ejection fraction is 50% by biplane method. - Normally functioning mitral valve s/p repair. EKG 2022 sinus rhythm at 60/Min; right bundle-branch block pattern Assessment and Plan Assessment Anesthesia Assessment: Chart Reviewed Final Anesthetic Review Family History of Problems with Anesthesia: No History of Problems with Anesthesia: No Documented by User: Bhumi Cash MD 12/27/23 11:34 [facility] Past Medical History Medical History History of transesophageal echocardiography (JOSE ELIAS) Right bundle branch block Mitral valve prolapse Family History Family History Father Diabetes History of heart bypass surgery Mother Heart failure Family history of problems with anesthesia: No Surgical History Surgical History History of mitral valve repair (~09/2021) S/P cardiac cath Hx of varicose vein ligation and stripping H/O colonoscopy History of Problems with Anesthesia: No Social History Social History Patient Tobacco Use Status: Never used Tobacco Are you DNR?: No Advance Directives: No Advance Directives Information Provided: Yes Nutrition Risks: No Nutritional Risk Meds Allergies Allergy/AdvReac Type Severity Reaction Status Date / Time No Known Allergies Allergy Mild N/A Verified 01/14/23 08:15 Exam Height,Weight and Vital Signs: Height 6 ft 3 in Weight 107.501 kg Vital Signs Temp Pulse Resp BP Pulse Ox O2 Del Method 12/27/23 10:28 98.1 F 72 18 124/74 96 Room Air Narrative Narrative: ECHO 2022 Conclusions: - The left ventricular systolic function is mildly decreased. The calculated ejection fraction is 50% by biplane method. Mild global hypokinesis - Normally functioning mitral valve s/p repair. EKG 2022 sinus rhythm at 60/Min; right bundle-branch block pattern Airway Mallampati Class: II TM Dist: >3cm Neck ROM: Full Loose/Missing/Broken Teeth: Yes (Missing teeth all over. Denies loose teeth. Top front teeth chipped) Heart: RRR Lungs: CTAB Assessment and Plan Assessment Anesthesia Assessment: Anesthesia Plan Discussed and Chart Reviewed Final Anesthetic Review Family History of Problems with Anesthesia: No History of Problems with Anesthesia: No NPO: Yes ASA Class: III Final Preanesthetic Review: No Changes in Pt Med Stat, Meds/Allgs Chart Reviewed, Consent Obtained/Reviewed and Anes Risks/Benef Reviewed Patient Risk: Intermediate Procedure Risk: Low Assessment/Block/Sedation in SS: Assess/Block/Sedation-SS Anesthetic Plan Anesthetic Plan: TIVA Disposition: Standard PACU
[2023-12-27 09:55] VITALS: BMI 27.6
[2023-12-27] MEDS: Lactated Ringers 1,000 ML 100 ML IVCONT (10:09)
[2023-12-27] MEDS: Ampicillin Sodium 2 GM in 0.9 % Sodium Chloride 100 ML IV (10:24)
[2023-12-27 10:28] VITALS: BP 124/74; PULSE 72; RESP 18; TEMP 36.7; O2SAT 96
--- NOTE | 2023-12-27 10:32 | PC.NURSE ---
preop antibiotics verified with dr. ureña and pharmacy. to be given by preop rn prior to the case.
[2023-12-27] MEDS: Gentamicin Sulfate/NaCl 80 MG/100 ML PIGGYBACK 100 MG IV (10:54)
--- NOTE | 2023-12-27 11:04 | PC.NURSE ---
report given to prashant abreu rn at this time.
[2023-12-27 13:03] VITALS: BP 102/72; PULSE 65; RESP 16; TEMP 36.2; O2SAT 95
--- NOTE | 2023-12-27 13:08 | P.BOP_ITS ---
Brief Operative Note Date of Service: 12/27/23 Pre-op diagnosis: Screening Post-op diagnosis: other (Colon polyps) Procedure: Colonoscopy to the cecum with hot snare polypectomy x 3 with placement of 3 Resolution clips on 1 of the ascending colon polypectomy sites and 3 Resolution clips on the polypectomy site at 30cm Surgeon: Huan Coy MD Anesthesia: MAC Was an Stroke Coordinator used for this Procedure?: No Estimated blood loss (mL): 10.0 Pathology: other (A. Ascending colon polyps B. Polyp at 30cm) Condition: stable Disposition: PACU
[2023-12-27 13:18] VITALS: BP 126/87; PULSE 61; RESP 16; O2SAT 96
[2023-12-27 13:33] VITALS: BP 127/82; PULSE 58; RESP 18; TEMP 36.6; O2SAT 98
--- NOTE | 2023-12-27 14:01 | OP_ITS ---
DATE OF SERVICE: 12/27/2023 SURGEON: Huan Coy MD INDICATIONS: The patient presents for evaluation of colorectal cancer screening and personal history of tubular adenoma of the colon. Full consent has been obtained from him for this, including risks of bleeding and perforation. PREOPERATIVE DIAGNOSIS: Personal history of tubular adenoma of the colon and colorectal cancer screening. POSTOPERATIVE DIAGNOSIS: PROCEDURE PERFORMED: Colonoscopy to the cecum with hot snare polypectomy x 3 with placement of 3 resolution clips on 1 of the polypectomy sites in the ascending colon and placement of 3 Resolution clips on the polypectomy site at 30 cm. ESTIMATED BLOOD LOSS: COMPLICATIONS: ANESTHESIA: Monitored anesthesia care. ASSISTANTS: SPECIMENS: POSTOPERATIVE DIAGNOSES: Personal history of tubular adenoma of the colon and colorectal cancer screening, colon polyps, diverticulosis, and internal hemorrhoids. DESCRIPTION OF PROCEDURE: The patient was placed in the left lateral decubitus position. The digital rectal exam revealed no abnormalities. The NetProspex video pediatric colonoscope was entered into the rectum advanced easily to the cecum. Once in the cecum, I did identify normal-appearing cecal pouch with appendiceal orifice and a normal-appearing ileocecal valve. The entire cecum appeared normal. The appendiceal orifice appeared normal. The ileocecal valve appeared normal. The scope was then slowly withdrawn assessing all mucosal surfaces carefully. Preparation was excellent. In the mid-ascending colon were 2 polyps. One was relatively flat and measured approximately 1 cm. This was removed by hot snare polypectomy and recovered by suction. The polypectomy site appeared clean, without any sign of residual polyp nor bleeding. The 2nd polyp in the same area was an approximately 1.5 cm polyp on a short stalk, which was removed by hot snare polypectomy. The polypectomy site appeared to be clean at that point without any residual polyp nor bleeding. The polyp was recovered with a retrieval net and taken out of the patient. The colonoscope was then re-entered into the rectum and then advanced back to the polypectomy sites. The polypectomy site from the larger polyp now had active pulsatile bleeding. This was initially controlled with the tip of the snare and cauterization. At that point, there was a clean base without any further sign of bleeding nor vessel. I then applied a total of 3 resolution clips to that polypectomy site with good deployment and good hemostasis. The area was irrigated and observed for 10 minutes, and there was no further bleeding. At 30 cm was a large approximately 1.5 cm polyp on a short stalk, which was removed by hot snare polypectomy and recovered by retrieving it on the tip of the scope and taking it out of the patient. The scope was advanced back to that polypectomy site. At that point, active bleeding was noted. There did appear to be some residual polyp tissue with a clot, and this area was removed by hot snare polypectomy as well. This was recovered on the tip of the scope as well. The scope was taken out of the patient. The scope was then advanced back to that polypectomy site, which now appeared to be clean, without any sign of residual polyp nor any bleeding. The polypectomy site had a clean base to it. I did deploy 3 resolution clips onto the polypectomy site with good deployment and good hemostasis. That area was also irrigated and observed for 10 minutes without any further bleeding. I did not visualize any other polyps, colitis, nor angiodysplasia. There was a mild amount of sigmoid diverticulosis. In the rectum, the scope was retroflexed visualizing internal hemorrhoids but no other pathology. The rectal mucosa appeared normal. The scope was straightened and withdrawn from the patient. He tolerated the procedure well and was returned to the recovery area in stable condition. IMPRESSION: 1. Colon polyps. 2. Diverticulosis. 3. Internal hemorrhoids. PLAN: The results of the pathology will be checked. Given the findings today, the size of the polyps, and the somewhat difficult procedure in regard to the bleeding, I would recommend a repeat colonoscopy in 2 to 3 years for further screening. He was advised not to use any aspirin and NSAIDs for 2 weeks. He did receive preprocedure antibiotics of ampicillin and gentamicin as recommended by his cashier assistant for the previous mitral valve surgery. He was advised to call if he notes any bleeding once he is home. This has been discussed with his as well. MD NESS Marion/PEPE / [phone] BLAISE
== END 2023-12-27 14:17 | disposition home or self-care (01) ==
PROVIDERS: PCP Internal Medicine; Visit Provider Internal Medicine
PROC: 0DJD8ZZ Inspection of Lower Intestinal Tract, Via Natural or Artificial Opening Endoscopic (ICD-10-PCS; CPT 45378; principal; 2023-12-27 11:50)
DX: Z12.11 Encounter for screening for malignant neoplasm of colon (principal); Z86.010 Personal history of colon polyps; D12.2 Benign neoplasm of ascending colon; D12.5 Benign neoplasm of sigmoid colon; K57.30 Diverticulosis of large intestine without perforation or abscess without bleeding; K64.8 Other hemorrhoids; Z79.82 Long term (current) use of aspirin; Z98.890 Other specified postprocedural states
CPT/HCPCS: 45385; 88305; J0290; J1580; J2704

== ENCOUNTER 2024-01-06 14:34 | Outpatient (AMB) | payer BC, MEDICARE, SELFPAY ==
[2024-01-06 14:40] VITALS: BP 110/60; PULSE 72; BMI 28.4
--- NOTE | 2024-01-06 14:40 | A.OFFVIS_ITS ---
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 To recall, he was seen in the past regarding severe mitral regurgitation. He had some shortness of breath with activity and subsequently, underwent cardiac catheterization that showed no significant coronary disease. Then seen cardiac surgeon and underwent mitral valve repair. He is fairly active with no limitations. No cardiac symptoms. No major comorbidities either. [facility] Medical History History of transesophageal echocardiography (JOSE ELIAS) Right bundle branch block Mitral valve prolapse Surgical History History of mitral valve repair (~09/2021) S/P cardiac cath Hx of varicose vein ligation and stripping H/O colonoscopy Family History Father Diabetes History of heart bypass surgery Mother Heart failure Social History (Updated 01/06/24 @ 14:44 by Brittney Nance CMA) Alcohol intake: current Comment: social Patient Tobacco Use Status: Never used Tobacco Review of Systems Const Denies chills, Denies fatigue, Denies fever(s), Denies weight gain and Denies weight loss ENT Denies dizziness Card Denies chest pain, Denies leg edema, Denies lightheadedness, Denies palpitations, Denies dyspnea on exertion, Denies orthopnea and Denies other Resp Denies cough and Denies dyspnea on exertion GI Denies hematochezia and Denies change in stool character Musc Denies abnormal gait, Denies muscle weakness, Denies numbness, Denies radiating pain into limb and Denies tingling Neuro Denies abnormal gait, Denies dizziness, Denies numbness and Denies tingling Endo Denies fatigue and Denies palpitations Physical Exam Vital Signs: Last Vital Signs Pulse 72 01/06/24 14:40 BP 110/60 01/06/24 14:40 BMI result Body Mass Index 28.4 Const General: comfortable and no acute distress Orientation/consciousness: patient oriented x3 HEENT Other: Unremarkable Head: Yes normal to inspection Neck Neck: Yes normal visual inspection Chest Chest palpation & inspection: normal inspection of the chest Resp Auscultation: clear to auscultation bilaterally Cardio Palpation: normal PMI Heart sounds: S1 normal heart sound present, S2 normal heart sound present, no gallops, no murmurs and no rubs GI Palpation (GI): Soft to palpation Back/Spine/Pelvis Other: unremarkable Skin General skin exam: no rashes or lesions noted Neuro General: patient oriented x3 Extrem General: Yes normal to inspection Psych Mental Status: mental status grossly normal Office Procedures EKG Details: EKG with underlying sinus rhythm at 72/Min; right bundle-branch block pattern. [id number], Complete Assessment & Plan Assessment & Plan (1) Status post mitral valve repair: Code(s): Z98.890 - Other specified postprocedural states Category: Surgical Plan: Preop cardiac catheterization showed normal coronary arteries. s/p mitral valve repair with annuloplasty ring and jessica chords. Postoperative echocardiogram had shown mild to moderately diminished LVEF and inferior wall hypo/akinesis. Mean gradient across the mitral valve then was 2 mm Hg. Repeat study with LVEF 50-55%. Status post mitral valve repair with no regurgitation or stenosis. Most recent echocardiogram with LVEF of 50%. Normally functioning mitral valve. He seems fairly stable with no symptoms. He is on low-dose aspirin that can be continued. Infective endocarditis prophylaxis per protocol. (2) RBBB: Code(s): I45.10 - Unspecified right bundle-branch block Category: Medical Plan: Stable. We discussed about progressive conduction disease and symptoms from the same. Indications for pacemaker also discussed. Plan Follow-up in 1 year. He will call us with any concerns. Orders: Orders CA echo transthoracic complete 1 Year Z98.890 - Other specified postprocedural states Coding Level of Care Code Est Pt Level 3 (99480) Diagnoses Status post mitral valve repair Z98.89 RBBB I45.10 CPT Codes EKG - CPT: 81974-[id number], Complete ([id number])
== END 2024-01-06 15:03 | disposition home or self-care (01) ==
PROVIDERS: PCP Internal Medicine; Visit Provider Internal Medicine
DX: Z98.890 Other specified postprocedural states (principal); I45.10 Unspecified right bundle-branch block
CPT/HCPCS: 93010; 99213

== ENCOUNTER → 2024-01-06 14:34 | Outpatient (BNVA) | payer BC, MEDICARE, SELFPAY | PROVIDERS: PCP Internal Medicine; Visit Provider Internal Medicine | DX: I45.10 Unspecified right bundle-branch block (principal); Z79.82 Long term (current) use of aspirin | CPT/HCPCS: 93005 ==

== ENCOUNTER 2024-05-11 12:14 | Outpatient (REF) | payer BC, MEDICARE, SELFPAY ==
[2024-05-11 12:18] LABS: MANUAL DIFF FLAG NO
[2024-05-11 12:22] LABS: Basophils Absolute Auto 0.1 X10*3/uL (0.0-0.2); Basophils Percent Auto 0.9 % (0-2); Eosinophils Absolute Auto 0.2 X10*3/uL (0.0-0.4); Eosinophils Percent Auto 2.6 % (0-4); Hematocrit 46.9 % (42.0-52.0); Hemoglobin 15.7 g/dl (14.0-18.0); Imm Gran Abs Auto 0.02 X10*3/uL (0.00-0.03); Imm Gran Pct Auto 0.3 % (0.0-0.4); Lymphocytes Absolute Auto 1.4 X10*3/uL (1.2-4.9); Lymphocytes Percent Auto 24.1 % (20-40); Mean Corpuscular HGB Conc 33.5 g/dl (31.0-36.0); Mean Corpuscular Hemoglobin 31.5 pg (27.0-33.0); Mean Corpuscular Volume 94.2 fL (80.0-98.0); Mean Platelet Volume 10.3 fL (9.4-12.4); Monocytes Absolute Auto 0.7 X10*3/uL (0.1-1.2); Monocytes Percent Auto 11.9 % (2-11); Neutrophils Absolute Auto 3.5 x10*3/uL (2.0-8.3); Neutrophils Percent Auto 60.2 % (45-73); Platelet Count 194 X10*3/uL (160-400); Red Blood Count 4.98 X10*6/uL (4.60-5.80); Red Cell Distribution Width 13.2 % (11.0-16.0); White Blood Count 5.8 X10*3/uL (4.8-10.8)
[2024-05-11 12:23] LABS: Appearance Urine Clear; Color Urine Yellow; Glucose Urine UA Negative (Negative); Leukocyte Esterase Urine Negative (Negative); Nitrite Urine Negative (Negative); PH 5.5 (5.0-9.0); Specific Gravity - Urine 1.015 (1.005-1.025); Urine Blood Negative (Negative); Urine Ketones Negative (Negative); Urine Protein Negative (Neg-Trace)
[2024-05-11 12:26] LABS: Bacteria Urine None Seen (None Seen); Hyaline Casts Urine 0-2 /LPF (0-2); RBC Urine 0-2 /HPF (0-2); Squamous Epithelial Cell Urine 0-2 /HPF (0-2); WBC Urine 0-5 /HPF (0-5)
[2024-05-11 12:33] LABS: Alanine Aminotransferase 21 U/L (0-40); Albumin Level 4.2 g/dL (3.5-5.0); Alkaline Phosphatase 92 U/L (39-117); Anion Gap 7 (12-20); Aspartate Amino Transferase 24 U/L (5-37); Bilirubin Total 0.5 mg/dL (0.0-1.0); Blood Urea Nitrogen 15 mg/dL (9-16); Calcium 9.4 mg/dL (8.4-10.2); Carbon Dioxide 30 mmol/L (22-29); Chloride 105 mmol/L (96-108); Cholesterol 171 mg/dL (<200); Estimated Glomerular Filt Rate > 60; Glucose Fasting 115 mg/dL (60-99); HDL Cholesterol 74 mg/dL (>40); LDL Cholesterol Calculated 83 mg/dL (<100); Potassium 4.3 mmol/L (3.3-5.1); Sodium 138 mmol/L (135-145); Total Protein 7.3 g/dL (6.5-8.0); Triglycerides 71 mg/dL (<150)
[2024-05-11 12:37] LABS: Estimated Average Glucose 108 mg/dL; Hemoglobin A1C 146.6736 umol/L; Hemoglobin A1c % 5.4 % (<6.0); Total Hemoglobin (HGBA1C) 4107.4421 umol/L
[2024-05-11 12:48] LABS: Creatinine Urine 97.78 mg/dL; Microalbumin Urine < 5.0 mg/L
[2024-05-11 12:53] LABS: PSA,Total (Free>4and<10) 0.58 ng/mL (0.00-4.00)
== END 2024-05-11 12:15 | disposition home or self-care (01) ==
LOC: HO.LNP 12:14
PROVIDERS: Visit Provider Internal Medicine
DX: Z00.00 Encounter for general adult medical examination without abnormal findings (principal); Z13.6 Encounter for screening for cardiovascular disorders; Z12.5 Encounter for screening for malignant neoplasm of prostate; D70.9 Neutropenia, unspecified; R73.09 Other abnormal glucose
CPT/HCPCS: 80053; 80061; 81001; 82570; 83036; 84153; 85025

== ENCOUNTER → 2024-12-25 09:50 | Outpatient (REF) | payer MEDICARE, SELFPAY ==
--- OUTSIDE RECORDS SUMMARY | 2023-12-27 08:10 | XMS_ITS ---
Author Organization [facility] Address [address] [place] [address] Care Team Providers Care Aged Or Disabled Carer Name Role Phone Mitul Galicia MD Primary Care Provider Huan Garza [phone] REASON FOR VISIT screening colon Problems Problem Type SNOMED Code ICD Code Onset Dates Problem Status W/U Status Risk Notes Problem Diverticulosis o f large intestine without perforation or abscess without bleeding (K57.30) Active confirmed Encounters Encounter Location Date Provider Diagnosis [facility] Outpatient [address] [place], [place] [id number] 12/27/2023 Huan Coy Colon cancer scree yasmeen Z12.11 ; Colon polyps K63.5 ; Diverticulosis of large intestine without perforation or abscess without bleeding K57.30 and Other hemorrhoids K64.8 Assessments Encounter Date Diagnosis (ICD Code) Assessment Notes Treatment Notes Treatment Clinical Notes Section Notes 12/27/2023 Colon cancer screening (ICD-10 - Z12.11) 12/27/2023 Colon polyps (ICD-10 - K63.5) 12/27/2023 Diverticulosis of large intestine without perforation or abscess without bleeding (ICD-10 - K57.30) 12/27/2023 Other hemorrhoids (ICD-10 - K64.8) Plan Of Treatment No Information Progress Notes * REUBEN LITTLE PDOB: (69 yo M)Acc No.[id number]:12/27/2023 COLON WITH MAC Patient: REUBEN JENSEN Provider: Jose Eduardo Coy MD :1955 A ge:68 Y S ex:Male Date:12/27/2023 Address:[address] [place], [place] [id number] Pcp:Mitul Galicia MD Subjective: * Chief Complaints: * 1 . Screening colon. * Medical History: Objective: * Vitals: Assessment: * Assessment: 1. C olon cancer screening - Z12.11 (Primary) 2 . C olon polyps - K63.5? 3. D iverticulosis of large intestine without perforation or abscess without bleeding - K57.30 4 . O ther hemorrhoids - K64.8 Plan: * Treatment: * Procedure Codes: 4 5385 LESION REMOVAL COLONOSCOPY, Modifiers: PT , 0529F INTRVL 3+YRS PTS CLNSCP DOCD, Modifiers: 8P , 0528F RCMND FLW-UP 10 YRS DOCD, Modifiers: 1P * * The named appointment provid er may or may not be the originator of this progress note, and it is not deemed complete until electronically signed by the appointment provider. Sign off status: Pending * Provider: Jose Eduardo Coy MD Date: 0 12/27/2023 Generated for Kenneth waters/Van/Rejiitting on: 12/25/2024 10:22 AM EDT
--- OUTSIDE RECORDS SUMMARY | 2024-05-25 06:00 | XMS_ITS ---
Author Organization Mitul Galicia MD Address [address] [place] [phone] Care Team Providers Care Claims Support Specialist Name Role Phone Mitul Galicia Primary Care Provider Allergies No Known Allergies Results Component Value Reference Range Notes Occult Blood, Stool, Guaiac Reviewed date:05/25/2024 01:26:24 PM Interpretation:Negative Performing Lab: Notes/Report: Negative Occult Blood, Stool, Guaiac Neg REASON FOR VISIT annual visit Medications Medication SIG (Take, Route, Fr equency, Duration) Notes Start Date End Date Status Aspir-Low 81 MG 1 tablet Orally Once a day for 30 day(s) Active Tamsulosin HCl 0.4 1 capsule 30 minutes after the same meal each day Orally Once a day for 90 Not-Taking Social History Tobacco Use: Social History Observation Description Date Details (start date - stop date) Never Smoker NA - NA Tobacco Use/Smoking Question Answer Notes Patient is a nonsmoker Additional Findings: Tobacco Non-User Cu rrent non-smoker, currently using no form of tobacco Alcohol Screen Question Answer Notes Did you have a drink contain ing alcohol in the past year? Yes How often did you have a dri nk containing alcohol in the past year? Monthly or less (1 point) How many drinks did you have on a typical day when you were drinking in the past year? 1 or 2 drinks (0 point) How often did you have 6 or more drinks on one occasion in the past year? Never (0 point) Points 1 Interpretation Negative Vital Signs Blood pressure systolic 122 mm Hg 05/25/19 25 Blood pressure diastolic 70 mm Hg 025 Height 74 in 05/25/2024 Weight 245 lbs 05/25/2024 BMI 31.45 kg/m2 05/25/2024 weight is up 20 pounds since 05-03-23 Encounters Encounter Location Date Provider Diagnosis Mitul Galicia MD [address] [place] [address] Drive [address] [place], [place] [phone] 05/25/2024 Mitul Galicia Prediabetes R73.09 ; Annual physical exam Z00.00 ; Unintended weight gain R63.5 ; Colon cancer screening Z12.11 and Depression screening Z13.31 Assessments Encounter Date Diagnosis (ICD Code) Assessment Notes Treatment Notes Treatment Clinical Notes Section Notes 05/25/2024 Prediabetes (ICD-10 - R73.09) doing well with good a1c, no need for medication at ths time, will continue to monitor 05/25/2024 Annual physical exam (ICD-10 - Z00.00) labs reviewed and discussed with patient 05/25/2024 Unintended weight gain (ICD-10 - R63.5) not exercising , advised on diet and exercise 05/25/2024 Colon cancer screening (ICD-10 - Z12.11) guaiac negative 05/25/2024 Depression screening (ICD-10 - Z13.31) negative screen Plan Of Treatment Treatment Notes Assessment Notes Prediabetes doing well with good a1c, no need for medication at ths time, will continue to monitor Annual physical exam labs reviewed and d iscussed with patient Unintended weight gain not exercising , advised on diet and exercise Colon cancer screening guaiac negative Depression screening negative screen Next Appt Details Follow Up: 1 Year, Reason: Provider Name:Mitul jain, 05/25/2025 07:15:00 AM, [address] [place] [address] Drive, [address], [place], [place], [phone], Provider Name:Mitul Armstrong ier, 06/01/2025 09:30:00 AM, [address], [address], [place], [phone], Progress Notes * Maya PERAZAOB:1955 (68 yo M)Acc No.[id number]:05/25/2024 Progress Notes Patient: Raúl Claire Provider: Aleena Galicia MD :1955 A ge:68 Y S ex:Male Date:05/25/2024 Address:[address] [place] [address] [place], [id number] Subjective: * Chief Complaints: * A nnual visit * HPI: D epression Screening: PHQ-9 L ittle interest or pleasure in doing things N ot at all, F eeling down, depressed, or hopeless N ot at all, T rouble falling or staying asleep, or sleeping too much N ot at all, F eeling tired or having little energy N ot at all, P oor appetite or overeating N ot at all, F eeling bad about yourself or that you are a failure, or have let yourself or your family down N ot at all, T rouble concentrating on things, such as reading the newspaper or watching television N ot at all, M oving or speaking so slowly that other people could have noticed; or the opposite, being so fidgety or restless that you have been moving around a lot more than usual N ot at all, T houghts that you would be better off or of hurting yourself in some way N ot at all, T otal Score 0 . C ommunication Needs: Communication Needs D oes the patient have a hearing impairment N o, D oes the patient have a vision impairment? Y es, I f yes, what is the vision impairment? G lasses, D oes the patient have a cognition impairment? N o. F all Risk: History H ave you had any falls with injury in the past year? Y brandon slipped on the ice landed on his back and head. No ER visit, H ave you had two or more falls in the past year? N o. S EMBER Questions: SDOH Questions I n the past year have you been worried about losing housing? N o, I n the past year have you or any family members you live with been unable to get any of the following when it was really needed? Check all that apply: N one. S ymptom(s): patient is a 68 yo male here for yearly physical with review of recent labs and follow up of chronic issues. / had gout couple times lasted couple days. * ROS: G eneral/Constitutional: Patient denies f atigue , headache. C hange in appetite?denies. C hills d enies. F ever d enies. O phthalmologic: Blurred vision d enies. D ischarge d enies. P ain d enies. E NT: Patient denies d ecreased sense of smell , any loss of taste , sore throat. D ecreased hearing d enies. S ore throat d enies. S wollen glands d enies. E ndocrine: Cold intolerance d enies. E xcessive thirst d enies. H eat intolerance d enies. W eight loss d enies. R espiratory: Cough d enies. S hortness of breath at rest d enies. S hortness of breath with exertion d enies. W heezing d enies. C ardiovascular: Chest pain at rest d enies. C hest pain with exertion?denies. I rregular heartbeat d enies. S hortness of breath d enies. ? G astrointestinal: Abdominal pain d enies. C hange in bowel habits d enies. D iarrhea d enies. N ausea d enies. R ectal bleeding d enies. V omiting d enies . G enitourinary: Blood in urine d enies. D ifficulty urinating d enies. F requent urination d enies. M usculoskeletal: Patient denies m uscle aches. P ainful joints d enies. W eakness d enies. P eripheral Vascular: Patient denies r ed and blue toes. S kin: Dry skin d enies. I tching d enies. D enies?Mole(s), changes in moles, new moles or any lesions of concern. D enies P hotosensitivity. R dior d enies. N eurologic: Dizziness d enies. F ainting d enies. H eadache?denies. * Medical History: * Surgical History: * Hospitalization/Major Diagno stic Procedure: * Family History: F ather: 70 yrs, type II diabetes. M other: 88 yrs, healthy. 2 brother(s) , 1 sister(s) . 3 son(s) - healthy. . Father- Cardiac Mother [place], Denies mental health/substance abuse family history, Denies mental health/substance abuse family history, No pertinent family medical history, Denies mental health/substance abuse family history. * Social History: T obacco Use: T obacco Use/Smoking P dylan is a n onsmoker, A dditional Findings: Tobacco Non-User C urrent non-smoker, currently using no form of tobacco. D rugs/Alcohol: A lcohol Screen D id you have a drink containing alcohol in the past year? Y es, H ow often did you have a drink containing alcohol in the past year? M onthly or less (1 point), H ow many drinks did you have on a typical day when you were drinking in the past year? 1 or 2 drinks (0 point), H ow often did you have 6 or more drinks on one occasion in the past year? N ever (0 point), P oints 1 , I nterpretation N egative. M iscellaneous: C affeine: yes, frequency:, 1-2 cups per day. Children: yes. no Community involvements. Exercise: yes, yard work. Home smoke detector use: yes. Housing: owning. Marital status: . Occupation: works full-time. Pets: cats: dogs: 4 cats. no Travel outside of the [place]. * Medications: T akingAspir-Low 81 MG Tablet Delayed Release 1 tablet Orally Once a dayTaking Aspir-Low 81 MG Tablet Delayed Release 1 tablet Orally Once a dayNot-Taking/PRNTamsulosin HCl 0.4 Capsule 1 capsule 30 minutes after the same meal each day Orally Once a dayMedication List reviewed and reconciled with the patientNot-Taking/PRN Tamsulosin HCl 0.4 Capsule 1 capsule 30 minutes after the same meal each day Orally Once a dayMedication List reviewed and reconciled with the patient * Allergies: N .K.D.A.yes[Allergies Verified] Objective: * Vitals: H t: 74, Wt: 245, BMI:31.45, BP:122/70, Wt-k.13 weight is up 20 pounds since 05-03-23. * P ast Orders: L ab:Lipid Panel (Order Date - 05/11/2024) (Collection Date - 05/11/2024) Value Reference Range Triglycerides 71 <150 - mg/dL Cholesterol 171 <200 - mg/dL LDL Cholesterol Calculated 83 <100 - mg/dL HDL Cholesterol 74 >40 - mg/dL L ab:PSA,Total (Free>4and<10) (Order Date - 05/11/2024) (Collection Date - 05/11/2024) Value Reference Range PSA,Total (Free>4and<10) 0.58 0.00-4.00 - ng/ mL L ab:Microalbumin, Random (Order Date - 05/11/2024) (Collection Date - 05/11/2024) Value Reference Range Creatinine Urine 97.78 - mg/dL Microalbumin Urine < 5.0 - mg/L Microalbum Creatinine Ratio Ur TNP <30 - ug/ mg cr L ab:Hemoglobin A1c (Order Date - 05/11/2024) (Collection Date - 05/11/2024) Value Reference Range Hemoglobin A1c % 5.4 <6.0 - % Estimated Average Glucose 108 - mg/dL L ab:Complete Blood Count Auto Diff (Order Date - 05/11/2024) (Collection Date - 05/11/2024) Value Reference Range White Blood Count 5.8 4.8-10.8 - X10*3/uL Red Blood Count 4.98 4.60-5.80 - X10*6/uL Hemoglobin 15.7 14.0-18.0 - g/dl Hematocrit 46.9 42.0-52.0 - % Mean Corpuscular Volume 94.2 80.0-98.0 - fL Mean Corpuscular Hemoglobin 31.5 27.0-33.0 - pg Mean Corpuscular HGB Conc 33.5 31.0-36.0 - g/ dl Red Cell Distribution Width 13.2 11.0-16.0 - % Platelet Count 194 160-400 - X10*3/uL Mean Platelet Volume 10.3 9.4-12.4 - fL Neutrophils Percent Auto 60.2 45-73 - % Imm Gran Pct Auto 0.3 0.0-0.4 - % Lymphocytes Percent Auto 24.1 20-40 - % Monocytes Percent Auto 11.9 H 2-11 - % Eosinophils Percent Auto 2.6 0-4 - % Basophils Percent Auto 0.9 0-2 - % NRBC Pct Auto 0.0 0.0-0.2 - /100WBC Neutrophils Absolute Auto 3.5 2.0-8.3 - x10* 3/uL Imm Gran Abs Auto 0.02 0.00-0.03 - X10*3/uL Lymphocytes Absolute Auto 1.4 1.2-4.9 - X10* 3/uL Monocytes Absolute Auto 0.7 0.1-1.2 - X10*3/ uL Eosinophils Absolute Auto 0.2 0.0-0.4 - X10* 3/uL Basophils Absolute Auto 0.1 0.0-0.2 - X10*3/ uL NRBC Abs Auto 0.000 0.0-0.012 - X10*3/uL L ab:UA ClnCatch+Micro w/rflx Cult (Order Date - 05/11/2024) (Collection Date - 05/11/2024) Value Reference Range Color Urine Yellow - Appearance Urine Clear - PH 5.5 5.0-9.0 - Glucose Urine UA Negative Negative - mg/dL Urine Blood Negative Negative - Specific [place] - Urine 1.015 1.005-1.025 - Urine Protein Negative Neg-Trace - mg/dL Urine Ketones Negative Negative - mg/dL Nitrite Urine Negative Negative - Leukocyte Esterase Urine Negative Negative - RBC Urine 0-2 0-2 - /HPF WBC Urine 0-5 0-5 - /HPF Squamous Epithelial Cell Urine 0-2 0-2 - /HP F Bacteria Urine None Seen None Seen - Hyaline Casts Urine 0-2 0-2 - /LPF L ab:Comprehensive [place]. Panel Fast (Order Date - 05/11/2024) (Collection Date - 05/11/2024) Value Reference Range Sodium 138 135-145 - mmol/L Bilirubin Total 0.5 0.0-1.0 - mg/dL Aspartate Amino Transferase 24 5-37 - U/L Alanine Aminotransferase 21 0-40 - U/L Total Protein 7.3 6.5-8.0 - g/dL Albumin Level 4.2 3.5-5.0 - g/dL Alkaline Phosphatase 92 39-117 - U/L Potassium 4.3 3.3-5.1 - mmol/L Chloride 105 96-108 - mmol/L Carbon Dioxide 30 H 22-29 - mmol/L Anion Gap 7 L 12-20 - Blood Urea Nitrogen 15 9-16 - mg/dL Creatinine 0.90 0.5-1.4 - mg/dL Estimated Glomerular Filt Rate > 60 - Glucose Fasting 115 H 60-99 - mg/dL Calcium 9.4 8.4-10.2 - mg/dL * Examination: G eneral Examination: GENERAL APPEARANCE: w ell developed, well nourished, in no acute distress. HEAD: n ormocephalic, atraumatic. EYES: p upils equal, round, reactive to light and accommodation, sclera non-icteric. EARS: n ormal. ORAL CAVITY: m ucosa moist. THROAT: c lear. NECK/THYROID: n gorge supple, full range of motion, no cervical lymphadenopathy, no bruits. SKIN: w arm and dry, no suspicious lesions. HEART: r egular rate and rhythm, S1, S2 normal, no murmurs.? LUNGS: c lear to auscultation bilaterally. ABDOMEN: s oft, nontender, nondistended, bowel sounds present, normal, no organomegaly , no masses palpable. RECTAL EXAM: n ormal tone, no external hemorrhoids, no masses palpable, prostate normal, stool guaiac negative. MALE GENITOURINARY: c ircumcised , no penile lesions or discharge , testes descended bilaterally. EXTREMITIES: n o clubbing, cyanosis, or edema. NEUROLOGIC: n onfocal, motor strength normal upper and lower extremities, sensory exam intact. Assessment: * Assessment: 1. A nnual physical exam - Z00.00 (Primary) 2 . P rediabetes - R73.09 3 . U nintended weight gain - R63.5 4 . C olon cancer screening - Z12.11 5 . D epression screening - Z13.31 Plan: * Treatment: 2. P rediabetes Notes: doing well with good a1c, no need for medication at ths time, will continue to monitor ? 3. U nintended weight gain Notes: not exercising , advised on diet and exercise 4. C olon cancer screening L AB: Occult Blood, Stool, Guaiac N egative Value Reference Range O ccult Blood, Stool, Guaiac Neg Notes: guaiac negative??5.?Depression screening? Notes: negative screen?? * Procedure Codes: 8 2270 TEST FOR BLOOD, FECES * Follow Up: 1 Year * * Sign off status: Completed true * Provider: Aleena Galicia MD Date: 0 05/25/2024 Generated for Kenneth waters/Van/Rejiitting on: 0 12/25/2024 10:22 AM EDT History and Physical Notes * HPI (History of Present Illness) Category Sub-Category Detail Notes Category Not es Symptom(s) patient is a 68 yo male here for yearly physical with review of recent labs and follow up of chronic issues. / had gout couple times lasted couple days Depression Screening PHQ-9 Little inte rest or pleasure in doing things: Not at all Feeling down, depressed, or hopeless: No t at all Trouble falling or staying asleep, or sl eeping too much: Not at all Feeling tired or having little energy: N ot at all Poor appetite or overeating: Not at all Feeling bad about yourself o r that you are a failure, or have let yourself or your family down: Not at all Trouble concentrating on thi ngs, such as reading the newspaper or watching television: Not at all Moving or speaking so slowly that other people could have noticed; or the opposite, being so fidgety or restless that you have been moving around a lot more than usual: Not at all Thoughts that you would be b ray off or of hurting yourself in some way: Not at all Total Score: 0 SDOH Questions SDOH Questions In the past year have you been worried about losing housing?: No In the past year have you or any family members you live with been unable to get any of the following when it was really needed? Check all that apply:: None Fall Risk History Have you had any falls with injury in the past year?: Yes slipped on the ice landed on his back and head. No ER visit Have you had two or more falls in the year?: No Communication Needs Communication Needs Does the patient have a hearing impairment: No Does the patient have a vision impairmen t?: Yes If yes, what is the vision impairment?: Glasses Does the patient have a cognition impair ment?: No Examination Category Sub-Category Detail Notes Category Not es General Examination GENERAL APPEARANCE: well dev eloped, well nourished, in no acute distress HEAD: normocephalic, atrau matic EYES: pupils equal, round, reactive to light and accommodation, sclera non-icteric EARS: normal THROAT: clear NECK/THYROID: neck supple, full ra nge of motion, no cervical lymphadenopathy, no bruits HEART: regular rate and rhy thm, S1, S2 normal, no murmurs LUNGS: clear to auscultatio n bilaterally ABDOMEN: soft, nontender, non distended, bowel sounds present, normal, no organomegaly , no masses palpable NEUROLOGIC: nonfocal, motor stre ngth normal upper and lower extremities, sensory exam intact SKIN: warm and dry, no vannessa picious lesions EXTREMITIES: no clubbing, cyanosi s, or edema MALE GENITOURINARY: circumcised , no pen ile lesions or discharge , testes descended bilaterally RECTAL EXAM: normal tone, no exte rnal hemorrhoids, no masses palpable, prostate normal, stool guaiac negative ORAL CAVITY: mucosa moist
--- NOTE | 2024-12-25 09:52 | CA_ITS ---
Transthoracic Echocardiogram Patient (Last, First, Middle): Raúl Peraza P Gender: Male Date of : 1955 Age: 69 Procedure Date: 12/25/2024 Procedure Type: Transthoracic Echocardiogram Location: OP Height: 187.96 cm Weight: 102.06 kg BSA: 2.28 m2 Heart Rate: bpm BP: 116 / 76 mmHg [place] Steam: HYACINTH Referring MD: Jaycob Malone MD Symptoms: Z98.890 - Other specified postprocedural states Study Quality: Adequate Conclusions: - The left ventricular systolic function is low normal. The visually estimated ejection fraction is between 50-55%. - Normally functioning mitral valve, status post repair. Findings Left Ventricle Normal left ventricular cavity size. There is normal left ventricular wall thickness. The left ventricular systolic function is low normal. The visually estimated ejection fraction is between 50-55%. Diastolic function is normal for age. Right Ventricle Mildly increased right ventricular cavity size. There is mildly decreased right ventricular systolic function. Atria The left atrium is mildly dilated. The right atrium is normal in size. Aortic Valve There is a normal trileaflet aortic valve. There is no aortic valve stenosis. There is no aortic valve regurgitation. Mitral Valve There is no mitral valve regurgitation. There is no mitral valve stenosis. Status post mitral valve repair. Pulmonic Valve The pulmonic valve is likely normal. Tricuspid Valve There is mild tricuspid valve regurgitation. There is no evidence of pulmonary hypertension. Great Vessels The asc aorta and aortic arch are normal in size. Venous The inferior vena cava is normal in size and collapses greater than 50% with inspiration. Pericardium/Pleural There is no evidence of pericardial effusion. Prior Study Comparison No significant change compared to prior study dated: 12/15/2022. Measurements 2D Linear Measurements IVSd: 0.90 0.6-0.9/0.6-1.0 cm LVIDd: 4.92 3.9-5.3/4.2-5.9 cm LVIDd Index: 2.16 2.4-3.2/2.2-3.1 cm/m2 LVIDs: 3.57 2.0-3.6 cm LVPWd: 1.20 0.7-1.1 cm LA Diam: 5.00 2.7-3.8/3.0-4.0 cm LAIDs Index: 2.19 1.5-2.3 cm/m2 LV Mass: 236.54 67-162/88-224 g LV Mass Index: 103.75 43-95/49-115 g/m2 LVOT Diam: 2.70 3.0+(-)1.3 cm 2D Systolic Function EF 4C: 51.10 >55% EF 2C: 56.30 >55% EF BiP: 54.90 >55% Mitral Valve MV VTI: 0.44 MV Pk Fritz: 0.96 MV Mn Fritz: 0.62 MV Pk Grad: 4.00 MV Mn Grad: 2.00 MV Pk E: 0.68 MV PK A: 0.96 MV Decel Time: 341.00 E/A: 0.70 E'Lateral: 8.49 E'Medial: 6.96 E/E' Med: 9.70 E/E' Lat: 8.00 PHT: 100.00 MVA PHT: 2.20 MVA Continuity: 2.76 Decel Drew: 1.99 Aortic Valve AoV Pk Fritz: 1.34 AoV Mn Fritz: 0.97 AoV VTI: 0.31 AoV Pk Grad: 7.00 Aov Mn Grad: 4.00 DERECK Cont.VTI: 3.86 LVOT LVOT Pk Fritz: 0.97 LVOT Mn Fritz: 0.65 LVOT VTI: 0.21 LVOT Pk Grad: 4.00 LVOT Mn Grad: 2.00 LVOT Diam: 2.70 LVOT Area: 5.73 Diastolic Function MV Pk E: 0.68 MV Pk A: 0.96 E/A: 0.70 E'Medial: 6.96 E/E' Med: 9.70 E' Laterial: 8.49 E/E' Lat: 8.00 Right Ventricle TAPSE (mm): 14.30 TVS' Fritz: 6.85 Tricuspid Valve TR Pk Fritz: 2.19 TR Pk Grad: 19.00 RA Press: 3.00 RVSP: 22.00 Great Vessels Aorta Sinus of Valsalva: 4.22 2.0-3.[address] [place]: 3.63 1.7-3.4 cm Ao Asc: 3.80 2.1-3.4 cm Ao Arch: 3.20 Updated in Other Vendor System with Status of Final Jaycob Malone MD electronically signed on 12/26/2024 12:03:56 PM with status of Final
== END ==
LOC: HO.CARD 09:50
PROVIDERS: PCP Internal Medicine; Visit Provider Internal Medicine
DX: Z98.890 Other specified postprocedural states (principal)
CPT/HCPCS: 93306

== ENCOUNTER → 2024-12-25 09:52 | Outpatient (BNV) | payer MEDICARE, SELFPAY | PROVIDERS: PCP Internal Medicine; Visit Provider Internal Medicine | DX: I36.1 Nonrheumatic tricuspid (valve) insufficiency (principal); Z95.4 Presence of other heart-valve replacement; Z98.890 Other specified postprocedural states | CPT/HCPCS: 93306 ==

== ENCOUNTER 2025-01-04 09:10 | Outpatient (AMB) | payer MEDICARE, SELFPAY ==
--- OUTSIDE RECORDS SUMMARY | 2023-12-27 08:10 | XMS_ITS ---
Author Organization [facility] Address [address] [place] [address] Care Team Providers Care Compliance Testing Analyst Name Role Phone Mitul Galicia MD Primary Care Provider Huan Garza [phone] REASON FOR VISIT screening colon Problems Problem Type SNOMED Code ICD Code Onset Dates Problem Status W/U Status Risk Notes Problem Diverticular disease of colon (525701710) Diverticulosis of large intestine without perforation or abscess without bleeding (K57.30) Active confirmed Encounters Encounter Location Date Provider Diagnosis [facility] Out[place] [address] [place], [place] [phone] 12/27/2023 Huan Coy Colon cancer scree yasmeen [...] Information Progress Notes * REUBEN LITTLE PDOB: [birth year] (69 yo M)Acc No.[id number]:12/27/2023 COLON WITH MAC Patient: REUBEN JENSEN Provider: Jose Eduardo Coy MD :1955 A ge:68 Y S ex:Male Date:12/27/2023 Address:[address] [place] [address], [address] [id number] Pcp:Mitul Galicia MD Subjective: * Chief Complaints: [...] 0 12/27/2023 Generated for Kenneth waters/Van/Rejiitting on: 0 01/04/2025 10:15 AM EDT
--- OUTSIDE RECORDS SUMMARY | 2024-05-25 06:00 | XMS_ITS ---
Author Organization Mitul Galicia MD Address [address] [place] [phone] Care Team Providers Care Core Machine Tender Name Role Phone Mitul Galicia Primary Care Provider [phone] Allergies No Known Allergies Results Component Value [...] Location Date Provider Diagnosis Mitul Galicia MD [address] [place] [address] Drive [address] [place], [place] [phone] 05/25/2024 Mitul Galicia Prediabetes R73.09 ; Annual [...] Reason: Provider Name:Mitul jain, 05/25/2025 07:15:00 AM, [address] [place] [address] Drive, [address], [place], [place], [phone], Provider Name:Mitul Armstrong ier, 06/01/2025 09:30:00 AM, [address], [address], [place], [id number], Progress Notes * Maya PERAZAOB:1955 (68 yo M)Acc No.[id number]:05/25/2024 Progress Notes Patient: Raúl Claire Provider: Aleena Galicia MD :1955 A ge:68 Y S ex:Male Date:05/25/2024 Address:[address] [place] [address] [place], [id number] Subjective: * Chief Complaints: * A nnual [...] son(s) - healthy. . Father- Cardiac Mother [place], Denies mental health/substance abuse family history, Denies [...] mg/dL Urine Blood Negative Negative - Specific [place] - Urine 1.015 1.005-1.025 - Urine Protein [...] Urine 0-2 0-2 - /LPF L ab:Comprehensive [place]. Panel Fast (Order Date - 05/11/2024) (Collection [...] MD Date: 0 05/25/2024 Generated for Kenneth waters/Van/Delfinosmitting on: 0 01/04/2025 10:15 AM EDT History and Physical Notes * [...]
[2025-01-04 09:18] VITALS: BP 120/70; PULSE 65; BMI 29.2
--- NOTE | 2025-01-04 09:18 | MHC.OFFVIS ---
Vital Signs 01/04/25 09:18 Height 6 ft 3 in Weight 233 lb 11.04 oz BMI 29.2 BP 120/70 Blood Pressure Location Lt brachial Position Sitting Pulse 65 Pulse Source Monitor Intake Visit Reasons: 1 yr follow up Allergies No Known Allergies Allergy (Mild, Verified 01/14/23 08:15) N/A Medication List - Last Reconciled 01/04/25 by Jaycob Malone MD aspirin (Adult Low Dose Aspirin) 81 mg PO DAILY HPI Comments Details: Raúl returns for follow-up regarding mitral valve repair. In 2021, he underwent mitral valve repair for severe mitral regurgitation. Preoperative catheterization did not show any significant coronary disease. Overall, he states he is feeling good. No concerns whatsoever. No cardiac symptoms. [facility] Medical History History of transesophageal echocardiography (JOSE ELIAS) Right bundle branch block Mitral valve prolapse Surgical History History of mitral valve repair (~09/2021) S/P cardiac cath Hx of varicose vein ligation and stripping H/O colonoscopy Family History Father Diabetes History of heart bypass surgery Mother Heart failure Social History (Updated 01/06/24 @ 14:44 by Brittney Nance CMA) Alcohol intake: current Comment: social Patient Tobacco Use Status: Never used Tobacco Review of Systems Const Denies weakness ENT Denies dizziness Card Denies chest pain, Denies chest pain with activity, Denies syncope, Denies rapid heart rate, Denies pedal edema, Denies edema, Denies leg edema, Denies lightheadedness, Denies palpitations, Denies dyspnea, Denies dyspnea on exertion and Denies orthopnea Resp Denies cough, Denies dyspnea and Denies dyspnea on exertion GI Denies hematochezia and Denies change in stool character Musc Denies abnormal gait, Denies muscle cramps, Denies muscle weakness, Denies numbness, Denies radiating pain into limb and Denies tingling Neuro Denies abnormal gait, Denies dizziness, Denies syncope, Denies numbness, Denies tingling and Denies weakness Endo Denies palpitations Physical Exam Vital Signs: Last Vital Signs Pulse 65 01/04/25 09:18 BP 120/70 01/04/25 09:18 BMI result Body Mass Index 29.2 Const General: comfortable and no acute distress Orientation/consciousness: patient oriented x3 HEENT Other: Unremarkable Head: Yes normal to inspection Neck Neck: Yes normal visual inspection Chest Chest palpation & inspection: normal inspection of the chest Resp Auscultation: clear to auscultation bilaterally Cardio Palpation: normal PMI Heart sounds: S1 normal heart sound present, S2 normal heart sound present, no gallops, no murmurs and no rubs GI Palpation (GI): Soft to palpation Back/Spine/Pelvis Other: unremarkable Skin General skin exam: no rashes or lesions noted Neuro General: patient oriented x3 Extrem General: Yes normal to inspection Psych Mental Status: mental status grossly normal Office Procedures EKG Details: EKG with underlying sinus rhythm at 65/Min; right bundle-branch block pattern; [place] [id number], Complete Assessment & Plan Assessment & Plan (1) Status post mitral valve repair: Code(s): Z98.890 - Other specified postprocedural states Category: Surgical Plan: Preop cardiac catheterization showed normal coronary arteries. s/p mitral valve repair with annuloplasty ring and jessica chords. In the most recent echocardiogram, LVEF is 50-55%. Normally functioning mitral valve, status post repair. Continue low-dose aspirin. Infective endocarditis prophylaxis per protocol. (2) RBBB: Code(s): I45.10 - Unspecified right bundle-branch block Category: Medical Plan: Stable. Plan Discussion Notes During the visit, I discussed with the patient the importance of maintaining his current medication regimen and active lifestyle to support his cardiovascular health. I emphasized the need to inform his dentist about his valve procedure and to take Antibiotics before any dental procedures. We agreed on an annual follow-up schedule to monitor his condition and address any new issues that may arise. Patient was informed and verbally consented to the use of an ambient scribe for clinic note documentation during this visit. Patient Instructions: - Continue taking baby aspirin daily. - Maintain an active lifestyle with regular physical activities. - Inform your dentist about your valve surgery before any dental work. - Take Antibiotics before dental procedures. - Schedule an annual follow-up appointment. Coding Level of Care Code Est Pt Level 3 (20740) Diagnoses Status post mitral valve repair Z98.890 RBBB I45.10 CPT Codes EKG - CPT: 54201-[id number], Complete ([id number])
== END 2025-01-04 09:52 | disposition home or self-care (01) ==
LOC: HO.HCS 09:11
PROVIDERS: PCP Internal Medicine; Visit Provider Internal Medicine
DX: Z98.890 Other specified postprocedural states (principal); I45.10 Unspecified right bundle-branch block
CPT/HCPCS: 93010; 99213

== ENCOUNTER → 2025-01-04 09:10 | Outpatient (BNVA) | payer MEDICARE, SELFPAY | PROVIDERS: PCP Internal Medicine; Visit Provider Internal Medicine | DX: I45.10 Unspecified right bundle-branch block (principal); Z98.890 Other specified postprocedural states | CPT/HCPCS: 93005; 99212 ==